=== PATIENT | female | born 1955 | race Caucasian/White ===

== ENCOUNTER → 2024-02-01 | Outpatient (CLI) | payer MEDICARE, OTHER ==
--- NOTE | 2024-02-01 11:14 | US ---
EXAMINATION TYPE: US venous doppler duplex LE BI DATE OF EXAM: 02/01/2024 10:31 AM COMPARISON: NONE CLINICAL INDICATION: Female, 68 years old with history of R60.0 LOCALIZED EDEMA BLE R16.1 SPLENOMEGAL Y; , Pain, Swelling. Edema bilateral legs, worse on the left TECHNIQUE: The lower extremity deep venous system is examined utilizing real time linear array sonog suleiman with graded compression, color doppler sonography, and spectral doppler. SIDE PERFORMED: bilateral FINDINGS: VESSELS IMAGED: Common Femoral Vein Deep Femoral Vein Greater Saphenous Vein * Femoral Vein Popliteal Vein Small Saphenous Vein * Proximal Calf Veins (* superficial vessels) Lymph nodes: limited evaluation due to patient's body habitus Right Leg: No evidence of DVT. Unable to visualize lower femoral vein for compression Left Leg: No evidence of DVT. Unable to visualize lower femoral vein for compression IMPRESSION: Unable to visualize the lower femoral veins on either side due to edema and body habitus. Otherwise, no evidence for DVT within the bilateral lower extremities imaged from the groin to the upper calves. [facility], , 02/01/2024 11:12 AM
--- NOTE | 2024-02-01 11:38 | US ---
EXAMINATION TYPE: US abdomen complete DATE OF EXAM: 02/01/2024 COMPARISON: NONE CLINICAL INDICATION: Female, 68 years old with history of R16.1 SPLENOMEGALY; splenic aneurysm TECHNIQUE: Grayscale and color Doppler imaging of the abdomen was performed. FINDINGS: EXAM MEASUREMENTS: Liver Length: 23.0 cm Gallbladder Wall: 0.2 cm CBD: 0.4 cm Spleen: 9.0 cm Right Kidney: 15.5 x 6.3 x 5.2 cm Left Kidney: 12.2 x 5.8 x 4.2 cm BLACKJACK DEALER NOTES: Technical limitations due to patient's body habitus and overlying bowel gas Pancreas: Obscured by bowel gas Liver: enlarged Gallbladder: no evidence of stones Evidence for sonographic Lanza's sign: no CBD: limited evaluation Spleen: limited evaluation, appears wnl as visualized Right Kidney: No evidence for hydronephrosis or calculus. Left Kidney: No evidence for hydronephrosis or calculus. Upper IVC: wnl Abd Aorta: Obscured by overlying bowel gas The liver is homogenous. The intrahepatic portion of the IVC and proximal abdominal aorta are within normal limits. There is no evidence of cholelithiasis. Common bile duct is unremarkable. The visu alized portions of the pancreas are homogenous. The spleen is unremarkable. Kidneys are symmetric a nd free of hydronephrosis. No renal lesions are seen. IMPRESSION: No evidence for acute abdominal process. [facility], , 02/01/2024 11:36 AM
== END | disposition home or self-care (01) ==
LOC: RADUSWWP 09:57
PROVIDERS: ATTEND Student in an Organized Health Care Education/Training Program
CPT/HCPCS: 76700; 93970

== ENCOUNTER → 2024-02-10 | Outpatient (CLI) | payer MEDICARE, OTHER ==
--- NOTE | 2024-02-13 11:45 | CA ---
Transthoracic Echo Report Name: Alannah Cyr Age: 68 Gender: F : 1955 Exam Date: 02/10/2024 16:36 Exam Location: [facility] Ht (in): 60 Wt (lb): 258 Ordering Physician: Bernie Tellez DO Attending/Referring Phys: Bernie Tellez DO Engine Lathe Tender Bonny Judge, RDSYL Procedure CPT: Indications: R00.1 BRADYCARDIA, UNSPECIFIED Cardiac Hx: Technical Quality: Fair Contrast 1: Total Dose (mL): Contrast 2: Total Dose (mL): MEASUREMENTS (Male / Female) Normal Values 2D ECHO LV Diastolic Diameter PLAX 3.7 cm 4.2 - 5.9 / 3.9 - 5.3 cm LV Systolic Diameter PLAX 2.5 cm IVS Diastolic Thickness 1.3 cm 0.6 - 1.0 / 0.6 - 0.9 cm LVPW Diastolic Thickness 1.4 cm 0.6 - 1.0 / 0.6 - 0.9 cm LV Relative Wall Thickness 0.7 RV Internal Dim ED PLAX 3.2 cm LA Systolic Diameter LX 3.3 cm 3.0 - 4.0 / 2.7 - 3.8 cm LV Diastolic Volume MOD BP 87.1 cm??? 67 - 155 / 56 - 104 cm??? LV Systolic Volume MOD BP 25.0 cm??? - 58 / 19 - 49 cm??? LV Ejection Fraction MOD BP 71.3 % >= 55 % LV Cardiac Index MOD BP 2451.3 cm???/min???m??? LV Diastolic Volume MOD 4C 87.7 cm??? LV Systolic Volume MOD 4C 39.1 cm??? LV Ejection Fraction MOD 4C 55.4 % LV Cardiac Index MOD 4C 1917.8 cm???/min???m??? LV Diastolic Length 4C 7.8 cm LV Systolic Length 4C 6.8 cm LV Diastolic Volume MOD 2C 58.5 cm??? LV Systolic Volume MOD 2C 19.3 cm??? LV Ejection Fraction MOD 2C 66.9 % LV Cardiac Index MOD 2C 1544.9 cm???/min???m??? LV Diastolic Length 2C 6.8 cm LV Systolic Length 2C 5.7 cm LA Volume 45.0 cm??? 18 - 58 / 22 - 52 cm??? LA Volume Index 19.5 cm???/m??? 16 - 28 cm???/m??? M-MODE Aortic Root Diameter MM 3.8 cm AV Cusp Separation MM 2.5 cm DOPPLER AV Peak Velocity 168.9 cm/s AV Peak Gradient 11.4 mmHg MV Area PHT 2.6 cm??? Mitral E Point Velocity 101.2 cm/s Mitral A Point Velocity 124.6 cm/s Mitral E to A Ratio 0.8 MV Deceleration Time 286.3 ms MV E' Velocity 6.7 cm/s Mitral E to MV E' Ratio 15.0 TR Peak Velocity 239.7 cm/s TR Peak Gradient 23.0 mmHg Right Ventricular Systolic Press 28.0 mmHg FINDINGS Left Ventricle Left ventricular ejection fraction is estimated at 55-60 %. Small left ventricular cavity. Moderately increased septal wall thickness. Moderately increased posterior wall thickness. No obvious regional wall motion abnormalities. Right Ventricle Normal right ventricular size. Right ventricular systolic pressure within normal limits. Right Atrium Normal right atrial size. No right atrial thrombus or mass seen. Left Atrium Normal left atrial size. No left atrial thrombus or mass present. Mitral Valve Mitral valve thickened. Mild mitral annular calcification. Aortic Valve Trileaflet aortic valve. No aortic valve stenosis or regurgitation. Tricuspid Valve Structurally normal tricuspid valve. Trace to mild tricuspid regurgitation. Pulmonic Valve Structurally normal pulmonic valve. Mild pulmonic regurgitation. Pericardium No pericardial or pleural effusion. Aorta Mild aortic dilatation at the level of the sinuses of valsalva 38 mm CONCLUSIONS Technically difficult study for interpretation Normal biventricular systolic function Moderate left ventricular hypertrophy No pericardial effusion Normal pulmonary artery systolic pressure Previewed by: Dr. August Dill MD (Electronically Signed) Final Date: 13 February 2024 11:44
== END | disposition home or self-care (01) ==
LOC: RADECHMAIN 16:16
PROVIDERS: ATTEND Student in an Organized Health Care Education/Training Program
DX: R00.1 Bradycardia, unspecified (principal); I51.7 Cardiomegaly
CPT/HCPCS: 93306

== ENCOUNTER → 2024-06-15 | Outpatient (CLI) | payer MEDICARE ==
[2024-06-15 09:23] LABS: Appearance,Urine Clear (Clear); Bilirubin,Urine Negative (Negative); Blood,Urine Negative (Negative); Color,Urine Colorless; Glucose,Urine (UA) Negative (Negative); Ketones,Urine Negative (Negative); Leukocyte Esterase,Urine Negative (Negative); Nitrite,Urine Negative (Negative); PH, Urine 6.5 (5.0-8.0); Protein,Urine Negative (Negative); Specific Gravity,Urine 1.018 (1.001-1.035); Urobilinogen,Urine <2.0 mg/dL (<2.0)
[2024-06-15 14:46] LABS: Basophils # (A) 0.05 X 10*3/uL (0.00-0.10); Basophils % (A) 0.7 %; Eosinophils # (A) 0.06 X 10*3/uL (0.04-0.35); Eosinophils % (A) 0.8 %; HCT 35.7 % (37.2-46.3); HGB 11.4 g/dL (12.0-15.0); Lymphocytes # (A) 1.98 X 10*3/uL (0.90-5.00); Lymphocytes % (A) 26.3 %; MCH 29.7 pg (27.0-32.0); MCHC 31.9 g/dL (32.0-37.0); Mean Platelet Volume 10.5 FL (9.5-12.2); Monocytes # (A) 0.52 X 10*3/uL (0.20-1.00); Monocytes % (A) 6.9 %; NRBC Per 100 WBC 0 X 10*3/uL (0.00-0.01); Neutrophils # (A) 4.83 X 10*3/uL (1.80-7.70); Platelet Count 278 X 10*3/uL (140-440); RBC 3.84 X 10*6/uL (4.10-5.20); RDW 15.2 % (11.5-14.5); WBC 7.54 X 10*3/uL (4.50-10.00)
[2024-06-15 15:21] LABS: BUN/Creat Ratio 32.17 Ratio (12.00-20.00); Blood Urea Nitrogen 19.3 mg/dL (9.0-27.0); Glucose 165 mg/dL (70-110)
[2024-06-15 15:22] LABS: ALT 15 U/L (8-44); AST 16 U/L (13-35); Alkaline Phosphatase 70 U/L (41-126); Calcium 9.5 mg/dL (8.7-10.3); Carbon Dioxide 27.7 mmol/L (21.6-31.8); Chloride 98 mmol/L (96-109); Globulin 2.1 g/dL (1.6-3.3); Magnesium 1.7 mg/dL (1.5-2.4); Phosphorus 3.5 mg/dL (2.4-5.1); Potassium 5.2 mmol/L (3.5-5.5); Sodium 135 mmol/L (135-145); Total Bilirubin 0.3 mg/dL (0.3-1.2); Total Protein 6.1 g/dL (6.2-8.2)
[2024-06-15 20:23] LABS: Microalbumin Creatinine Ratio <18 mg/g Cr (0-30)
== END | disposition home or self-care (01) ==
LOC: LABWHC1 08:24
PROVIDERS: ATTEND Internal Medicine
DX: R89.0 Abnormal level of enzymes in specimens from other organs, systems and tissues (principal)
CPT/HCPCS: 36415; 80053; 81003; 82043; 82570; 83735; 84100; 85025

== ENCOUNTER → 2024-07-13 | Outpatient (CLI) | payer MEDICARE, OTHER ==
[2024-07-13 15:21] LABS: Basophils # (A) 0.07 X 10*3/uL (0.00-0.10); Basophils % (A) 0.7 %; Eosinophils # (A) 0.05 X 10*3/uL (0.04-0.35); Eosinophils % (A) 0.5 %; HCT 34.9 % (37.2-46.3); HGB 11.1 g/dL (12.0-15.0); Lymphocytes # (A) 3.11 X 10*3/uL (0.90-5.00); Lymphocytes % (A) 32.7 %; MCH 29.8 pg (27.0-32.0); MCHC 31.8 g/dL (32.0-37.0); MCV 93.8 FL (80.0-97.0); Mean Platelet Volume 10.2 FL (9.5-12.2); Monocytes # (A) 0.55 X 10*3/uL (0.20-1.00); Monocytes % (A) 5.8 %; NRBC Per 100 WBC 0 X 10*3/uL (0.00-0.01); Neutrophils % (A) 57.8 %; Platelet Count 284 X 10*3/uL (140-440); RBC 3.72 X 10*6/uL (4.10-5.20); RDW 15.4 % (11.5-14.5); WBC 9.52 X 10*3/uL (4.50-10.00)
[2024-07-13 16:01] LABS: % Iron Saturation 21.61 (12.00-45.00); ALT 16 U/L (8-44); AST 10 U/L (13-35); Albumin 3.9 g/dL (3.8-4.9); Albumin/Globulin Ratio 1.95 Ratio (1.60-3.17); Alkaline Phosphatase 64 U/L (41-126); BUN/Creat Ratio 28.33 Ratio (12.00-20.00); Calcium 9.2 mg/dL (8.7-10.3); Carbon Dioxide 26.3 mmol/L (21.6-31.8); Chloride 97 mmol/L (96-109); Chol/HDL Ratio 2.87 Ratio; Ferritin 35.6 ng/mL (10.0-291.0); Glucose 166 mg/dL (70-110); Iron 78 UG/DL (50-170); Sodium 136 mmol/L (135-145); T4, Free (Free Thyroxine) 1.55 ng/dL (0.80-1.80); Total Bilirubin 0.3 mg/dL (0.3-1.2); Total Iron Binding Capacity 361 UG/DL (228-460); Total Protein 5.9 g/dL (6.2-8.2)
[2024-07-13 21:17] LABS: Microalbumin Creatinine Ratio <6 mg/g Cr (0-30)
== END | disposition home or self-care (01) ==
LOC: LABWHC1 08:30
DX: I10 Essential (primary) hypertension (principal); E11.65 Type 2 diabetes mellitus with hyperglycemia; D64.9 Anemia, unspecified
CPT/HCPCS: 36415; 80053; 80061; 82043; 82570; 82607; 82728; 82746; 83036; 83540; 83550; 84439; 84443; 85025; 85045

== ENCOUNTER → 2024-09-26 | Outpatient (CLI) | payer MEDICARE ==
--- NOTE | 2024-09-26 09:13 | US ---
EXAMINATION TYPE: US abdomen complete DATE OF EXAM: 09/26/2024 COMPARISON: CLINICAL INDICATION: Female, 69 years old with history of R10.9 UNSPECIFIED ABDOMINAL PAIN; TECHNIQUE: Grayscale and color Doppler imaging of the abdomen was performed. FINDINGS: EXAM MEASUREMENTS: Liver Length: 17.9 cm Gallbladder Wall: 0.2 cm CBD: 0.5 cm, color Doppler imaging was utilized to isolate the common bile duct for measurement. Spleen: 10.1 cm Right Kidney: 15.1 x 6.4 x 4.8 cm Left Kidney: 12.1 x 4.7 x 6.0 cm Pancreas: Head and tail obscured by overlying bowel gas. Main pancreatic duct- 2.3 mm upper limits of normal Liver: Upper limits of normal in size. No dilated ducts, masses or cysts. Gallbladder: No stones or wall thickening seen Evidence for sonographic Lanza's sign: neg CBD: wnl Spleen: not well visuaslized Right Kidney: wnl, No hydronephrosis, calculi or masses seen Left Kidney: wnl, No hydronephrosis, calculi or masses seen Upper IVC: wnl Abd Aorta: Distal obscured by overlying bowel gas IMPRESSION: 1. No acute ultrasound abnormality. [facility], , 09/26/2024 9:11 AM
== END | disposition home or self-care (01) ==
LOC: RADUSWWP 08:08
PROVIDERS: ATTEND Student in an Organized Health Care Education/Training Program
DX: R10.9 Unspecified abdominal pain (principal)
CPT/HCPCS: 76700